=== PATIENT | male | born 1960 | race African-American/Black ===

== ENCOUNTER 2017-12-16 06:05 | Emergency (ER) | payer OTHER ==
[~2017-12-16] VITALS: Ht 177.8 cm; Wt 116.2 kg
[2017-12-16 06:41] LABS: HEMATOCRIT 45.2 % (38.0-50.0); HEMOGLOBIN 14.5 G/DL (12.5-16.6); MCHC 32.1 G/DL (30.0-36.0); MCV 87.3 FL (86-99); PLATELET COUNT 280 K/uL (156-360); RBC DIS.WIDTH-CV 13.3 % (11.8-14.6); RBC DIS.WIDTH-SD 42.8 % (39-53); RED BLOOD COUNT 5.18 M/uL (4.00-5.50); WHITE BLOOD COUNT 10.8 K/uL (4.1-10.2)
[2017-12-16 06:46] LABS: APPEARANCE CLEAR ((CLEAR)); BILIRUBIN NEGATIVE; BLOOD NEGATIVE; COLOR YELLOW ((YELLOW)); GLUCOSE (STRIP) NEGATIVE; KETONES NEGATIVE; LEUKOCYTES NEGATIVE; NITRITE NEGATIVE; PROTEIN (STRIP) 30; SPECIFIC GRAVITY 1.021 (1.000-1.030); UCUL ADDED? NO; UROBILINOGEN 0.2 MG/DL (0.2-1.0)
[2017-12-16 06:48] LABS: BASE EXCESS -3.3 mEq/L (-3 to +3); BICARBONATE 26.7 mEq/L (22-26); CARBOXY HGB 5.4 % (0-5); METHEMOGLOBIN 0.8 % (0-1.5); PCO2 70 mm Hg (35-45); PO2 547 mm Hg (80-100)
[2017-12-16 06:49] LABS: COMMENTS - BLOOD GASES +C; SITE RR +A; pH 7.19 (7.35-7.45)
[2017-12-16 06:50] LABS: DEVICE PB980; FI02 100 %; MECHANICAL RATE 16 resp/min; MODE AC; PEEP 5 CM/H20; TIDAL VOLUME 450 ML; TOTAL RESP RATE 16 resp/min
[2017-12-16 07:08] LABS: TROP-I INTERPRETATION NEGATIVE; TROPONIN-I 0.01 ng/mL (0.0-0.30)
[2017-12-16 07:18] LABS: CHLORIDE 111 MEQ/L (99-109); POTASSIUM 4.2 MEQ/L (3.7-5.4); SODIUM 140 MEQ/L (136-147)
[2017-12-16 07:23] LABS: CREATININE 1.3 MG/DL (0.6-1.3); GFR ESTIMATE (CALCULATED) > 59 mL/min/ (58.99-99999); GLUCOSE 171 mg/dL (70-99); UREA NITROGEN (BUN) 16 mg/dL (9-23)
[2017-12-16 08:55] LABS: BASE EXCESS -3.4 mEq/L (-3 to +3); BICARBONATE 25.8 mEq/L (22-26); CARBOXY HGB 4.8 % (0-5); METHEMOGLOBIN 0.8 % (0-1.5); PCO2 63 mm Hg (35-45); PO2 84 mm Hg (80-100); SITE RR +A; pH 7.22 (7.35-7.45)
[2017-12-16 08:56] LABS: COMMENTS - BLOOD GASES +C; DEVICE PB980; FI02 40 %; MECHANICAL RATE 20 resp/min; MODE AC; PEEP 5 CM/H20; TIDAL VOLUME 500 ML; TOTAL RESP RATE 20 resp/min
[2017-12-16 10:05] VITALS: BP 101/62
== END 2017-12-16 10:12 | disposition designated cancer center or children's hospital, planned readmission (85) ==
LOC: EME 06:05
PROVIDERS: Emergency Medicine
DX: J68.0 Bronchitis and pneumonitis due to chemicals, gases, fumes and vapors (principal); T54.2X1A Toxic effect of corrosive acids and acid-like substances, accidental (unintentional), initial encounter; J96.90 Respiratory failure, unspecified, unspecified whether with hypoxia or hypercapnia; E78.5 Hyperlipidemia, unspecified; Z98.1 Arthrodesis status
CPT/HCPCS: 36600; 71045; 80048; 81003; 82803; 84484; 85027; 87070; 87076; 87185; 87205; 93005; 94002; 99281; 99285; J0171; J2250; J2704; J2930; J7644

== ENCOUNTER 2018-05-29 22:02 | Emergency (ER) | payer OTHER ==
[~2018-05-29] VITALS: Ht 180.3 cm; Wt 110.4 kg
[2018-05-30] MEDS ORDERED: NAPROSYN500 MG PO (00:05)
[2018-05-30] MEDS ORDERED: LIDOCARE1 EACH TP (00:06)
[2018-05-30 00:30] VITALS: BP 104/79
== END 2018-05-30 01:19 | disposition home or self-care (01) ==
LOC: EME 22:02
DX: M23.92 Unspecified internal derangement of left knee (principal); E78.5 Hyperlipidemia, unspecified; F17.200 Nicotine dependence, unspecified, uncomplicated
CPT/HCPCS: 73564; 99281; 99284